=== PATIENT | female | born 1975 | race Caucasian/White ===

== ENCOUNTER 2020-09-14 07:32 | Emergency (ER) | payer OTHER, SELFPAY ==
[~2020-09-14] VITALS: Ht 170.2 cm; Wt 68.0 kg
[2020-09-14] MEDS ORDERED: NORMAL SALINE 5 ML DISP.SYRIN IVF SCH (07:45)
[2020-09-14 07:49] VITALS: BP_SYST 128
--- NOTE | 2020-09-14 07:50 | NUR ---
ambulated to bed 8
--- NOTE | 2020-09-14 07:55 | NUR ---
Patient presented to ER C/O abdominal pain. Patient ambulatory to ER, afebrile, skin pink and warm, nausea, denies V/D, pain 5/10. Patient states she has abdominal & pelvic pain X4 days. PT reports nausea & vomiting with abdominal pain Ryan. Today fever, chills, nausea & abdominal pain.
--- NOTE | 2020-09-14 07:56 | NUR ---
ISIS CHAVIRA at bedside examining patient.
[2020-09-14] MEDS ORDERED: NACL 0.9% 1,000 ML IV ONE (08:00)
--- NOTE | 2020-09-14 08:10 | NUR ---
PT TO CT VIA WHEELCHAIR WITH JEWELS MUNOZ
[2020-09-14 08:24] LABS: BASOPHILS # (AUTO) 0.1 K/uL (0.0-0.2); BASOPHILS % (AUTO) 0.5 % (0.0-2.0); EOSINOPHILS # (AUTO) 0.1 K/uL (0.0-0.4); EOSINOPHILS % (AUTO) 0.5 % (0.0-4.0); HEMATOCRIT 40.4 % (36-48); LYMPHOCYTES # (AUTO) 0.8 K/uL (1.0-5.5); LYMPHOCYTES % (AUTO) 7.7 % (20.5-51.5); MEAN CORPUSCULAR HEMOGLOBIN 28 pg (27-31); MEAN CORPUSCULAR HGB CONC 32 % (32-36); MEAN CORPUSCULAR VOLUME 87 fL (79.0-98.0); MONOCYTES % (AUTO) 9.5 % (1.7-9.3); NEUTROPHILS # (AUTO) 8.7 K/uL (1.8-7.7); NEUTROPHILS % (AUTO) 81.8 % (40.0-70.0); PLATELET COUNT (AUTO) 203 K/uL (130-430); RED BLOOD CELL COUNT(AUTO) 4.63 MIL/uL (4.2-6.2); RED CELL DISTRIBUTION WIDTH 15.4 % (9.0-15.0); WHITE BLOOD COUNT (AUTO) 10.7 K/uL (4.8-10.8)
[2020-09-14 08:44] LABS: CREATININE 0.75 mg/dL (0.55-1.30); POTASSIUM 3.8 mmol/L (3.5-5.1)
[2020-09-14 08:57] LABS: ALBUMIN 3.1 g/dL (3.4-4.8); BILIRUBIN,DIRECT 0.1 mg/dL (0.0-0.3); TOTAL BILIRUBIN 0.2 mg/dL (0.0-1.0)
--- NOTE | 2020-09-14 09:40 | NUR ---
Pelvic exam performed by DR CHAVIRA with PERICO HERNANDEZ at bedside for entire examination. Patient tolerated procedure WELL. Patient assisted to position of comfort after examination.
[2020-09-14 10:01] LABS: BILIRUBIN,URINE NEGATIVE (NEGATIVE); BLOOD, URINE 2+ (NEGATIVE); COLOR,URINE YELLOW (YELLOW); GLUCOSE,URINE NEGATIVE (NEGATIVE); KETONES,URINE NEGATIVE (NEGATIVE); LEUKOCYTE ESTERASE ,URINE 1+ (NEGATIVE); NITRITE, URINE NEGATIVE (NEGATIVE); PH,URINE 5.5 (5.0-8.0); PROTEIN URINE NEGATIVE (NEGATIVE); UROBILINOGEN,URINE 0.2 (0.2-1.0)
[2020-09-14 10:06] LABS: CLARITY/URINE SLIGHTLY HAZY (CLEAR)
--- NOTE | 2020-09-14 10:36 | NUR ---
ER Dr. Dawn at bedside discussing results with patient.
[2020-09-14 10:56] LABS: BACTERIA,URINE FEW /HPF (None Seen)
[2020-09-14 11:03] VITALS: BP_SYST 123
--- NOTE | 2020-09-14 11:03 | NUR ---
Patient given written and verbal discharge instructions and verbalizes understanding. ER MD discussed with patient the results and treatment provided. Patient in stable condition. ID arm band removed. IV catheter removed intact and dressing applied, no active bleeding. No Rx given. Patient educated on pain management and to follow up with PMD. Pain Scale 3/10. Opportunity for questions provided and answered. Medication side effect fact sheet provided.
[2020-09-16 10:06] LABS: NEISSERIA GONORRHOEAE NAA Negative (Negative)
[2020-09-22 12:09] LABS: CHLAMYDIA TRACHOMATIS NAA Positive (Negative)
== END 2020-09-14 11:03 | disposition home or self-care (01) ==
LOC: SED 07:32
DX: R10.30 Lower abdominal pain, unspecified (principal); R19.7 Diarrhea, unspecified; R11.10 Vomiting, unspecified
CPT/HCPCS: 36415; 74177; 76376; 80048; 80076; 81000; 81025; 83690; 84702; 85025; 87086; 87491; 87591; 96360; 99284; J7030; Q9967

== ENCOUNTER 2023-12-12 10:40 | Emergency (ER) | payer OTHER ==
[~2023-12-12] VITALS: Ht 170.2 cm; Wt 65.8 kg
[2023-12-12 10:49] VITALS: BP_SYST 127; PULSE 68; TEMP 97.5; O2SAT 98
[2023-12-12 11:28] LABS: INFLUENZA TYPE A Negative (NEGATIVE); INFLUENZA TYPE B NEGATIVE (NEGATIVE)
[2023-12-12] MEDS: ONDANSETRON 4 MG ODT TAB PO ONE (11:41)
[2023-12-12] MEDS: DIPHENOXYLATE HCL/ATROP SULF 2.5 MG TAB PO ONE (11:41)
[2023-12-12] MEDS: KETOROLAC TROMETHAMINE 30 MG VIAL IM ONE (11:41)
[2023-12-12 11:56] LABS: BASOPHILS # (AUTO) 0.1 K/uL (0.0-0.2); BASOPHILS % (AUTO) 0.8 % (0.0-2.0); EOSINOPHILS # (AUTO) 0.3 K/uL (0.0-0.4); EOSINOPHILS % (AUTO) 4.2 % (0.0-4.0); HEMOGLOBIN 12.5 g/dL (12.0-16.0); LYMPHOCYTES # (AUTO) 1.3 K/uL (1.0-5.5); MEAN CORPUSCULAR HEMOGLOBIN 27 pg (27-31); MEAN CORPUSCULAR HGB CONC 33 % (32-36); MEAN CORPUSCULAR VOLUME 81 fL (79.0-98.0); MONOCYTES # (AUTO) 0.8 K/uL (0.0-1.0); MONOCYTES % (AUTO) 11.4 % (1.7-9.3); NEUTROPHILS # (AUTO) 4.7 K/uL (1.8-7.7); NEUTROPHILS % (AUTO) 65.6 % (40.0-70.0); PLATELET COUNT (AUTO) 238 K/uL (130-430); RED CELL DISTRIBUTION WIDTH 16.3 % (9.0-15.0); WHITE BLOOD COUNT (AUTO) 7.2 K/uL (4.8-10.8)
[2023-12-12 12:21] LABS: CALCIUM 8.8 mg/dL (8.4-11.0); CREATININE 0.73 mg/dL (0.55-1.30); POTASSIUM 3.9 mmol/L (3.5-5.1)
[2023-12-12] MEDS ORDERED: LOM2.5 PO (12:56)
[2023-12-12] MEDS ORDERED: ONDA-8 TL (12:56)
[2023-12-12 13:15] VITALS: BP_SYST 127; PULSE 68; TEMP 97.5; O2SAT 98
== END 2023-12-12 13:17 | disposition home or self-care (01) ==
LOC: SED 10:40
DX: B34.9 Viral infection, unspecified (principal); R11.2 Nausea with vomiting, unspecified; R19.7 Diarrhea, unspecified; R42 Dizziness and giddiness; Z79.899 Other long term (current) drug therapy; Z20.822 Contact with and (suspected) exposure to COVID-19
CPT/HCPCS: 99283; 87426; 80048; 85025; 36415; 96372; 87804 ×2; Q0162; J1885